=== PATIENT | female | born 1985 | race Caucasian/White ===

== ENCOUNTER 2021-05-11 08:59 | Day surgery (SDC) | payer OTHER ==
[~2021-05-11] VITALS: Ht 175.3 cm; Wt 73.2 kg
[2021-05-11 09:38] VITALS: BP 114/77
[2021-05-11] MEDS ORDERED: ALPR0.25 PO (09:45)
[2021-05-11] MEDS ORDERED: SERT50TA28 PO (09:45)
[2021-05-11] MEDS ORDERED: FISH OIL PO (09:45)
[2021-05-11] MEDS ORDERED: CHLORHEXIDINE 15 ML UDC ONE (09:52)
[2021-05-11] MEDS ORDERED: CHLORHEXIDINE 15 ML UDC PO ONE (10:00)
[2021-05-11] MEDS ORDERED: LACTATED RINGERS 1,000 ML IV SCH (10:00)
[2021-05-11] MEDS ORDERED: BUPIVACAINE/PF 0.5% ONE (10:31)
[2021-05-11] MEDS ORDERED: FENTANYL PF 100 MCG/2ML ONE ×2 (11:03→12:42)
[2021-05-11] MEDS ORDERED: MIDAZOLAM 1 MG/ML, 2ML ONE (11:03)
[2021-05-11] MEDS ORDERED: HYDROcodone/APAP 7.5-325MG/15ML UDC PO PRN (12:00)
[2021-05-11] MEDS ORDERED: OXYcodone 5 MG/5 ML ORAL.SOL UDC PO PRN (12:00)
[2021-05-11] MEDS ORDERED: ONDANSETRON 2MG/ML, 2ML IVPush PRN (12:00)
[2021-05-11] MEDS ORDERED: KETOROLAC 30 MG/1 ML IVPush PRN (12:00)
[2021-05-11] MEDS ORDERED: MEPERIDINE/PF 25MG/0.5ML IVPush PRN (12:00)
[2021-05-11] MEDS ORDERED: HYDROmorphone 1 MG/ML, 1ML INJ IVPush PRN (12:00)
[2021-05-11] MEDS ORDERED: ACETAMINOPHEN 325 MG TABLET PO PRN (12:00)
[2021-05-11] MEDS ORDERED: PROMETHAZINE 25 MG/ML, 1ML IVPush PRN (12:00)
[2021-05-11] MEDS ORDERED: BUPIVACAINE/PF-EPI 0.5% 1:200K INFIL ONE (12:15)
[2021-05-11] MEDS ORDERED: KETOROLAC 30 MG/1 ML ONE (12:42)
[2021-05-11] MEDS ORDERED: OXYcodone 5 MG/5 ML ORAL.SOL UDC ONE (12:42)
[2021-05-11] MEDS: FENTANYL PF 100 MCG/2ML IV PRN ×3 (12:44→12:59)
== END 2021-05-11 14:33 | disposition home or self-care (01) ==
LOC: OUT 08:59
PROVIDERS: ATTEND Orthopaedic Surgery Hand Surgery
DX: S62.324A Displaced fracture of shaft of fourth metacarpal bone, right hand, initial encounter for closed fracture (principal); E78.00 Pure hypercholesterolemia, unspecified; F41.8 Other specified anxiety disorders; Z20.822 Contact with and (suspected) exposure to COVID-19; Z79.899 Other long term (current) drug therapy; Z88.8 Allergy status to other drugs, medicaments and biological substances; Z98.890 Other specified postprocedural states; W01.198A Fall on same level from slipping, tripping and stumbling with subsequent striking against other object, initial encounter; Y93.89 Activity, other specified; Y92.89 Other specified places as the place of occurrence of the external cause; Y99.8 Other external cause status
CPT/HCPCS: 26615; 73130; 81025; 87635; C1776; J1885; J2250; J3010; J7120; 76000